=== PATIENT | female | born 1990 | race Caucasian/White ===

== ENCOUNTER 2018-08-22 17:15 | Emergency (ER) | payer SELFPAY ==
--- NOTE | 2018-08-22 18:05 | ER Document Report ---
ED Medical Screen (RME) - General Chief Complaint: Vaginal Bleeding Stated Complaint: ABDOMINAL PAIN Time Seen by Provider: 08/22/18 18:02 Mode of Arrival: Ambulatory Information source: Patient Notes: 28-year-old female presented to ED for complaint of vaginal cramping and bleeding. She states she has an IUD that was replaced in January and now she wants the IUD removed. She just moved to [place] 2 days ago when she needs these removed. Patient is alert oriented respirations regular and unlabored speaking in full sentences walks with a even steady gait. I have greeted and performed a rapid initial assessment of this patient. A comprehensive ED assessment and evaluation of the patient, analysis of test results and completion of medical decision making process will be conducted by an additional ED providers. TRAVEL OUTSIDE OF THE [place] IN LAST 30 DAYS: No - Related Data Allergies/Adverse Reactions: No Known Allergies Allergy (Verified 08/22/18 17:19) Past Medical History - Social History Chew tobacco use (# tins/day): No Drug Abuse: None Renal/ Medical History: Denies: Hx Peritoneal Dialysis Physical Exam - Vital signs Vitals: Temp Pulse Resp BP Pulse Ox 98.4 F 80 16 101/62 98 08/22/18 17:33 08/22/18 17:33 08/22/18 17:33 08/22/18 17:33 08/22/18 17:33 Course - Vital Signs Vital signs: Temp Pulse Resp BP Pulse Ox 98.4 F 80 16 101/62 98 08/22/18 17:33 08/22/18 17:33 08/22/18 17:33 08/22/18 17:33 08/22/18 17:33
[2018-08-22 18:44] LABS: AMORPHOUS SEDIMENT,URINE TRACE /HPF; APPEARANCE,URINE CLOUDY; BILIRUBIN,URINE NEGATIVE (NEGATIVE); COLOR,URINE YELLOW; GLUCOSE, URINE NEGATIVE (NEGATIVE); KETONES,URINE NEGATIVE (NEGATIVE); LEUKOCYTE ESTERASE,URINE NEGATIVE (NEGATIVE); NITRITE,URINE NEGATIVE (NEGATIVE); PROTEIN,URINE NEGATIVE (NEGATIVE); URINE SPECIFIC GRAVITY 1.019; UROBILINOGEN,URINE NEGATIVE mg/dL (<2.0)
--- NOTE | 2018-08-22 22:02 | ER Document Report ---
ED GI/ - General Chief Complaint: Vaginal Bleeding Stated Complaint: ABDOMINAL PAIN Time Seen by Provider: 08/22/18 18:02 Primary Care Provider: [facility] [Provider Group] - Follow up as needed [facility] [NO LOCAL MD] - Follow up as needed Mode of Arrival: Ambulatory Notes: Patient is a 28-year-old female that comes to the emergency department for chief complaint of wanting her IUD removed. She states this was placed in January, replacing her original, she states however she is having intermittent cramping and bleeding, she wants to switch to different contraceptive, and she is requesting this be removed. She denies any current bleeding or cramping. She denies any current symptoms or complaints. She is new to this area and does not have [employer] yet. TRAVEL OUTSIDE OF THE [place] IN LAST 30 DAYS: No - Related Data Allergies/Adverse Reactions: No Known Allergies Allergy (Verified 08/22/18 17:19) Past Medical History - General Information source: Patient - Social History Smoking Status: Current Every Day Smoker Chew tobacco use (# tins/day): No Drug Abuse: None Lives with: Family Family History: Reviewed & Not Pertinent Patient has suicidal ideation: No Patient has homicidal ideation: No - Medical History Medical History: Negative Renal/ Medical History: Denies: Hx Peritoneal Dialysis Surgical Hx: Negative - Immunizations Immunizations up to date: Yes Hx Diphtheria, Pertussis, Tetanus Vaccination: Yes Review of Systems - Review of Systems Constitutional: No symptoms reported EENT: No symptoms reported Cardiovascular: No symptoms reported Respiratory: No symptoms reported Gastrointestinal: No symptoms reported Genitourinary: No symptoms reported Female Genitourinary: See HPI Musculoskeletal: No symptoms reported Skin: No symptoms reported Hematologic/Lymphatic: No symptoms reported Neurological/Psychological: No symptoms reported Physical Exam - Vital signs Vitals: Temp Pulse Resp BP Pulse Ox 98.4 F 80 16 101/62 98 08/22/18 17:33 08/22/18 17:33 08/22/18 17:33 08/22/18 17:33 08/22/18 17:33 - Notes Notes: GENERAL: Alert, interacts well. No acute distress. HEAD: Normocephalic, atraumatic. EYES: Pupils equal, round, and reactive to light. Extraocular movements intact. ENT: Oral mucosa moist, tongue midline. Oropharynx unremarkable. Airway patent. Nares patent, no nasal septal hematoma, TM's intact. NECK: Full range of motion. Supple. Trachea midline. LUNGS: Clear to auscultation bilaterally, no wheezes, rales, or rhonchi. No respiratory distress. HEART: Regular rate and rhythm. No murmur ABDOMEN: Soft, non-tender. Non-distended. Bowel sounds present in all 4 quadrants. GENITOURINARY: External exam with no concerning findings. PELVIC: Scant/minimal discharge, no cervical motion tenderness, no lesions or concerning findings. IUD strings are in place and outside of the cervix as expected. Nelda RN present during examination. EXTREMITIES: Moves all 4 extremities spontaneously. No edema, normal radial and dorsalis pedis pulses bilaterally. No cyanosis. BACK: no cervical, thoracic, lumbar midline tenderness. No saddle anesthesia, normal distal neurovascular exam. NEUROLOGICAL: Alert and oriented x3. Normal speech. [cranial nerves II through XII grossly intact]. PSYCH: Normal affect, normal mood. SKIN: Warm, dry, normal turgor. No rashes or lesions noted. Course - Re-evaluation Re-evalutation: Patient with nontender abdomen, well-appearing, unremarkable vital signs. She is requesting her IUD be removed because of her bleeding and cramping symptoms. After discussion we agreed we would attempt. Discussed with Dr. Lomeli. Speculum exam without any concerning findings, IUD was removed without any difficulty or any complications afterwards, patient asymptomatic afterwards as well. Discussed follow-up, recommendations, return precautions. Patient states understanding and agreement. - Vital Signs Vital signs: Temp Pulse Resp BP Pulse Ox 98.1 F 47 L 16 103/67 98 08/22/18 23:10 08/22/18 23:10 08/22/18 17:33 08/22/18 23:10 08/22/18 23:10 Procedures - Additional Procedures IUD removal Additional Procedures: Other - Pelvic examination performed using speculum with jorgitoe. Speculum was used to center the cervix, this was centered and visualized fully with 2 apparent strings coming out of the cervix. Both strings were grasped together using tongs. I pulled with the tongs using pressure and a smooth motion and the entire IUD removed from the cervix and vagina without noted pain or any difficulty. No noted bleeding or pain afterwards. Patient tolerated well. Discharge - Discharge Clinical Impression: Pelvic cramping Condition: Stable Disposition: HOME, SELF-CARE Additional Instructions: The IUD has been removed intact. You may experience some cramping or spotting. Take ibuprofen if needed. Use an alternative source of control (condoms, follow up with the health department referral, follow up with OBGYN, etc). Return if you worsen - severe pain, fever, vomiting, heavy bleeding, etc. Referrals: [facility] [NO LOCAL MD] - Follow up as needed [facility] [Provider Group] - Follow up as needed
[2018-08-22 23:15] VITALS: BP 103/67
== END 2018-08-22 23:15 | disposition home or self-care (01) ==
LOC: ER 17:15
DX: N93.8 Other specified abnormal uterine and vaginal bleeding (principal); R10.2 Pelvic and perineal pain; F17.200 Nicotine dependence, unspecified, uncomplicated; Z97.5 Presence of (intrauterine) contraceptive device
CPT/HCPCS: 81001; 81025; 99283